=== PATIENT | female | born 1965 | race Caucasian/White ===

== ENCOUNTER 2023-05-03 23:24 | Inpatient (IN) | payer OTHER, MEDICAID ==
[~2023-05-03] VITALS: Ht 154.9 cm; Wt 87.7 kg
[2023-05-03] MEDS ORDERED: SODIUM CHLORIDE 0.9% 1,000 ML IVB ONE (23:45)
[2023-05-04 00:15] LABS: Basophils # (auto) 0 10 ^3/uL (0-0.2); Eosinophils # (auto) 0 10 ^3/uL (0-0.8); Lymphocytes # (auto) 1.2 10 ^3/uL (0.4-5.4)
[2023-05-04 00:18] LABS: Basophils % (auto) 0.8 % (0.0-2.0); Eosinophils % (auto) 0.6 % (0.0-7.0); Hematocrit 38.1 % (36.0-46.0); Hemoglobin 12.3 g/dL (12.2-16.2); Lymphocytes % (auto) 30.5 % (10.0-50.0); Mean Corpuscular Hemoglobin 25.6 pg (28.0-32.0); Mean Corpuscular Hgb Conc. 32.3 g/dL (32.0-36.0); Mean Corpuscular Volume 79.3 fL (80.0-100.0); Monocytes # (auto) 0.2 10 ^3/uL (0-1.3); Monocytes % (auto) 6.1 % (0.0-12.0); Neutrophils # (auto) 2.5 10 ^3/uL (1.6-8.6); Nucleated Red Blood Cells % 0.2 %; Red Blood Cells 4.81 10^6/uL (4.0-5.20)
[2023-05-04 00:23] LABS: Red Cell Distribution Width 21.5 % (11.8-14.3)
[2023-05-04 00:24] LABS: INR 1.12 (0.9-1.15); Partial Thromboplastin Time 26.5 SEC (24.5-34.5); Prothrombin Time 11.7 sec (9.3-11.8)
[2023-05-04 00:36] LABS: Albumin 4.4 g/dL (3.2-4.8); Alkaline Phosphatase 81 U/L (46-116); Anion Gap 12 (5-15); Aspartate Aminotransferase 16 U/L (13-40); BUN/Creatinine Ratio 12.8 (10.0-20.0); Blood Urea Nitrogen 11 mg/dL (9-23); Calcium 8.8 mg/dL (8.7-10.4); Carbon Dioxide 20 mmol/L (20-30); Chloride 109 mmol/L (98-107); Glucose 156 mg/dL (74-106); Lipase 30 U/L (12-53); Magnesium 2.2 mg/dL (1.6-2.6); Potassium 3.6 mmol/L (3.5-5.1); Sodium 141 mmol/L (136-145)
[2023-05-04 00:37] LABS: Bilirubin, Total 0.4 mg/dL (0.2-1.0); Total Protein 7.2 g/dL (5.7-8.2)
[2023-05-04 00:43] LABS: Alanine Aminotransferase 9 U/L (7-40)
[2023-05-04] MEDS ORDERED: LORazepam 2MG/ML-1ML VIAL IV ONE ×2 (00:45→04:15)
[2023-05-04 00:52] LABS: Lactic Acid w/Reflex 2.8 mmol/L (0.4-2.0)
[2023-05-04] MEDS ORDERED: IOHEXOL 350 MG/ML 100ML IJ ONE (04:29)
[2023-05-04] MEDS ORDERED: PANTOPRAZOLE 80 MG in SODIUM CHL 0.9% 100 ML IV ONE (05:30)
[2023-05-04] MEDS ORDERED: PANTOPRAZOLE 40mg/50ML NS AE 50 ML IV ONE (05:30)
[2023-05-04 05:39] VITALS: PULSE 102; RESP 20; O2SAT 98
[2023-05-04] MEDS ORDERED: PANTOPRAZOLE 40 MG/10 ML VIAL INJ IV ONE (05:53)
[2023-05-04 07:12] LABS: Amphetamine Screen, Urine Neg (NEGATIVE); Barbiturate Scree,Urine Neg (NEGATIVE); Benzodiazephine Screen, Urine Neg (NEGATIVE); Cannabinoid Screen, Urine Neg (NEGATIVE); Cocaine Screen, Urine Neg (NEGATIVE); Opiate Scree,Urine Pos (NEGATIVE); Phencyclidine Screen, Urine Neg (NEGATIVE)
[2023-05-04 07:54] LABS: Urine Bacteria NONE SEEN /hpf (None Seen); Urine Blood Negative /uL (Negative); Urine Clarity Clear (Clear); Urine Color Yellow (Yellow); Urine Mucus FEW (None Seen); Urine Protein, UAD TRACE (Negative); Urine WBC <1 /hpf (0 - 5)
[2023-05-04 08:22] LABS: Urine Specific Gravity > 1.050 (1.001-1.035)
[2023-05-04] MEDS ORDERED: NITROGLYCERIN 0.4 MG SL TAB SL PRN (11:00)
[2023-05-04] MEDS ORDERED: MORPHINE SULFATE INJ 2 MG/ml SYRG IV PRN (11:00)
[2023-05-04] MEDS ORDERED: cefTRIAXone 1GM/50ML D5W 50 ML IV ONE ×2 (11:00→11:30)
[2023-05-04] MEDS ORDERED: ACETAMINOPHEN 325 MG TAB PO PRN (11:00)
[2023-05-04 12:02] LABS: Triglycerides 70 mg/dL (< 150)
[2023-05-04 12:03] LABS: LDL Cholesterol 104 mg/dL (< 100)
[2023-05-04 12:04] LABS: Cholesterol 191 mg/dL (< 200)
[2023-05-04 12:08] LABS: Free T3 2.54 pg/mL (2.3-4.2); Free T4 (Free Thyroxine) 0.72 ng/dL (0.89-1.76)
[2023-05-04 12:37] LABS: HDL Cholesterol 70 mg/dL (40-59)
[2023-05-04] MEDS: SODIUM CHLORIDE 0.9% 1,000 ML IV SCH (21:00)
[2023-05-05] VITALS (8 sets, daily range): BP systolic 114–143; BP diastolic 65–91; PULSE 73–98; RESP 15–19; TEMP 97.3–98.2; O2SAT 93–100
[2023-05-05] MEDS: cefTRIAXone 1GM/50ML D5W 50 ML IV SCH ×2 (02:14→08:43)
[2023-05-05] MEDS: SODIUM CHLORIDE 0.9% 1,000 ML IV SCH ×3 (02:14→17:00)
[2023-05-05] MEDS ORDERED: DIVA250T4 PO (06:54)
[2023-05-05] MEDS ORDERED: HYDR2TAB58 PO (06:54)
[2023-05-05] MEDS ORDERED: BACL10TA PO (06:54)
[2023-05-05] MEDS ORDERED: ENOXAPARIN SOD 40 MG/0.4 ML SYRINGE SC SCH (10:00)
[2023-05-05] MEDS ORDERED: LEVOTHYROXINE SODIUM 112 MCG TAB PO ONE (10:15)
[2023-05-05] MEDS ORDERED: APIXABAN 5 MG TAB PO ONE (10:30)
[2023-05-05] MEDS: LORazepam 0.5 MG TAB PO PRN ×2 (10:40→18:03)
[2023-05-05 11:38] LABS: Basophils # (auto) 0 10 ^3/uL (0-0.2); Eosinophils # (auto) 0 10 ^3/uL (0-0.8); Hemoglobin 11.4 g/dL (12.2-16.2); Neutrophils # (auto) 1.8 10 ^3/uL (1.6-8.6); Nucleated Red Blood Cells % 0.1 %; White Blood Cell 3.1 10^3/uL (4.4-10.8)
[2023-05-05 11:40] LABS: Basophils % (auto) 0.8 % (0.0-2.0); Hematocrit 35.4 % (36.0-46.0); Lymphocytes % (auto) 33.2 % (10.0-50.0); Mean Corpuscular Hemoglobin 25.3 pg (28.0-32.0); Mean Corpuscular Hgb Conc. 32.3 g/dL (32.0-36.0); Mean Corpuscular Volume 78.4 fL (80.0-100.0); Monocytes # (auto) 0.2 10 ^3/uL (0-1.3); Monocytes % (auto) 7.5 % (0.0-12.0); Neutrophils % (auto) 57.5 % (37.0-80.0); Red Blood Cells 4.52 10^6/uL (4.0-5.20); Red Cell Distribution Width 21.3 % (11.8-14.3)
[2023-05-05 11:58] LABS: Albumin 3.9 g/dL (3.2-4.8); Alkaline Phosphatase 71 U/L (46-116); Anion Gap 8 (5-15); Aspartate Aminotransferase 15 U/L (13-40); BUN/Creatinine Ratio 14.7 (10.0-20.0); Bilirubin, Total 0.6 mg/dL (0.2-1.0); Blood Urea Nitrogen 10 mg/dL (9-23); Calcium 8.6 mg/dL (8.7-10.4); Carbon Dioxide 23 mmol/L (20-30); Chloride 108 mmol/L (98-107); Glucose 89 mg/dL (74-106); Potassium 3.9 mmol/L (3.5-5.1); Sodium 139 mmol/L (136-145); Total Protein 6.2 g/dL (5.7-8.2)
[2023-05-05 12:00] LABS: Alanine Aminotransferase < 9 U/L (7-40)
[2023-05-05] MEDS ORDERED: diphenhdrAMINE HCL 25 MG CAP PO PRN (21:30)
[2023-05-05] MEDS: QUEtiapine FUMARATE 100 MG TAB PO SCH (22:22)
[2023-05-05] MEDS: APIXABAN 5 MG TAB PO SCH (22:22)
[2023-05-05] MEDS ORDERED: MORPHINE SULFATE INJ 2 MG/ml SYRG IV ONE (23:45)
[2023-05-06] VITALS (7 sets, daily range): BP systolic 114–142; BP diastolic 74–85; PULSE 84–98; RESP 15–20; TEMP 97.5–98.5; O2SAT 91–100
[2023-05-06] MEDS: LORazepam 0.5 MG TAB PO PRN ×3 (02:24→18:56)
[2023-05-06] MEDS: SODIUM CHLORIDE 0.9% 1,000 ML IV SCH ×3 (03:00→23:00)
[2023-05-06] MEDS: HYDROmorphone HCL 2 MG/ML VL/or syr IV PRN ×3 (04:12→19:59)
[2023-05-06] MEDS: LEVOTHYROXINE SODIUM 112 MCG TAB PO SCH (06:30)
[2023-05-06] MEDS: APIXABAN 5 MG TAB PO SCH ×2 (09:55→21:21)
[2023-05-06] MEDS: cefTRIAXone 1GM/50ML D5W 50 ML IV SCH (09:56)
[2023-05-06] MEDS: QUEtiapine FUMARATE 100 MG TAB PO SCH (21:21)
[2023-05-07] MEDS: HYDROmorphone HCL 2 MG/ML VL/or syr IV PRN ×2 (00:34→06:39)
[2023-05-07 05:00] VITALS: BP 117/63; PULSE 89; RESP 20; TEMP 97.7; O2SAT 95
[2023-05-07] MEDS: LEVOTHYROXINE SODIUM 112 MCG TAB PO SCH (06:38)
[2023-05-07 08:00] VITALS: BP 119/72; PULSE 73; PULSE 89; RESP 14; TEMP 98.3; O2SAT 98
[2023-05-07] MEDS: APIXABAN 5 MG TAB PO SCH (09:47)
[2023-05-07] MEDS: cefTRIAXone 1GM/50ML D5W 50 ML IV SCH (09:47)
[2023-05-07] MEDS: LORazepam 0.5 MG TAB PO PRN (09:47)
[2023-05-07] MEDS: SODIUM CHLORIDE 0.9% 1,000 ML IV SCH (09:48)
[2023-05-07 09:50] VITALS: BP 119/72; PULSE 89; RESP 14
[2023-05-07] MEDS ORDERED: LORA-1121 PO (11:25)
[2023-05-07] MEDS ORDERED: CIPR-173 PO (11:25)
== END 2023-05-07 13:21 | disposition home or self-care (01) | DRG 309 ==
LOC: ER 23:24 → EDBD 23:24 → TELE 05-04 10:58 → TELE-WESTW 05-04 23:00
PROVIDERS: ADMIT Nurse Practitioner Family; ATTEND Family Medicine
DX: R00.2 Palpitations (principal); E87.21 Acute metabolic acidosis; I47.19 Other supraventricular tachycardia; N39.0 Urinary tract infection, site not specified; G89.29 Other chronic pain; M54.9 Dorsalgia, unspecified; F32.A Depression, unspecified; R79.89 Other specified abnormal findings of blood chemistry; E03.9 Hypothyroidism, unspecified; E66.9 Obesity, unspecified; F41.0 Panic disorder [episodic paroxysmal anxiety]; K25.9 Gastric ulcer, unspecified as acute or chronic, without hemorrhage or perforation; K44.9 Diaphragmatic hernia without obstruction or gangrene; Z79.891 Long term (current) use of opiate analgesic; Z79.899 Other long term (current) drug therapy; Z88.0 Allergy status to penicillin; Z68.36 Body mass index [BMI] 36.0-36.9, adult; Z79.01 Long term (current) use of anticoagulants; Z86.718 Personal history of other venous thrombosis and embolism
CPT/HCPCS: 36415; 71275; 80053; 80061; 80307; 81001; 83036; 83605; 83690; 83735; 83880; 84439; 84443; 84481; 84484; 85025; 85379; 85610; 85730; 87040; 87086; 93005; 93306; 93970; 96361; 96365; 96366; 96375; 96376; C9113; G0378; J0696

== ENCOUNTER 2023-12-27 05:12 | Inpatient (IN) | payer OTHER, MEDICAID ==
[~2023-12-27] VITALS: Ht 152.4 cm; Wt 75.9 kg
[~2023-12-27 05:12] MED LIST: BACL10TA PO; CIPR-173 PO; DIVA-139 PO; HYDR2TAB58 PO; LORA-1121 PO
[2023-12-27] MEDS: SODIUM CHLORIDE 0.9% 1,000 ML IVB ONE (06:30)
[2023-12-27] MEDS: MECLIZINE HCL 25 MG TAB PO ONE (07:00)
[2023-12-27] MEDS: MAALOX PLUS or MAALOX 30 ML PO ONE (07:00)
[2023-12-27] MEDS: LIDOCAINE VISCOUS 2% 15ML UD PO ONE (07:00)
[2023-12-27] MEDS: FAMOTIDINE 20 MG TAB PO ONE (07:00)
[2023-12-27 07:30] VITALS: PULSE 61; RESP 18; O2SAT 98
[2023-12-27 07:43] LABS: Urine Bacteria None Seen /hpf (None Seen)
[2023-12-27 07:58] LABS: Urine Amorphous Crystal FEW /hpf (None Seen); Urine Blood Negative /uL (Negative); Urine Clarity Turbid (Clear); Urine Color Yellow (Yellow); Urine Mucus FEW (None Seen); Urine Protein, UAD Negative (Negative); Urine Urobilinogen 12 mg/dL (Negative); Urine WBC 2 /hpf (0 - 5)
[2023-12-27 08:51] LABS: Basophils # (auto) 0 10 ^3/uL (0-0.2); Basophils % (auto) 0.3 % (0.0-2.0); Eosinophils # (auto) 0 10 ^3/uL (0-0.8); Eosinophils % (auto) 0.5 % (0.0-7.0); Hematocrit 40.6 % (36.0-46.0); Hemoglobin 13.2 g/dL (12.2-16.2); Mean Corpuscular Hemoglobin 27.5 pg (28.0-32.0); Mean Corpuscular Hgb Conc. 32.4 g/dL (32.0-36.0); Mean Corpuscular Volume 84.7 fL (80.0-100.0); Monocytes # (auto) 0.4 10 ^3/uL (0-1.3); Monocytes % (auto) 10.4 % (0.0-12.0); Neutrophils # (auto) 2.3 10 ^3/uL (1.6-8.6); Neutrophils % (auto) 61.8 % (37.0-80.0); Nucleated Red Blood Cells % 0.2 %; White Blood Cell 3.7 10^3/uL (4.4-10.8)
[2023-12-27] MEDS: IOHEXOL 350 MG/ML 100ML IJ ONE (09:02)
[2023-12-27 09:06] LABS: INR 1.17 (0.9-1.15); Partial Thromboplastin Time 28.4 SEC (24.5-34.5); Prothrombin Time 12.3 sec (9.3-11.8)
[2023-12-27 09:24] LABS: Alanine Aminotransferase 15 U/L (7-40); Albumin 3.5 g/dL (3.2-4.8); Alkaline Phosphatase 56 U/L (46-116); Anion Gap 6 (5-15); Aspartate Aminotransferase 20 U/L (13-40); BUN/Creatinine Ratio 18.1 (10.0-20.0); Bilirubin, Total 0.2 mg/dL (0.2-1.0); Blood Urea Nitrogen 13 mg/dL (9-23); Carbon Dioxide 26 mmol/L (20-30); Chloride 112 mmol/L (98-107); Glucose 88 mg/dL (74-106); Sodium 144 mmol/L (136-145); Total Protein 5.3 g/dL (5.7-8.2)
[2023-12-27] MEDS ORDERED: LORazepam 2MG/ML-1ML VIAL IV PRN (10:15)
[2023-12-27 10:19] LABS: Calcium 8.9 mg/dL (8.7-10.4)
[2023-12-27] MEDS: AZITHROMYCIN 500MG/ 250ML 250 ML IV ONE (10:42)
[2023-12-27 11:41] LABS: Amphetamine Screen, Urine Neg (NEGATIVE); Barbiturate Scree,Urine Neg (NEGATIVE); Benzodiazephine Screen, Urine Neg (NEGATIVE); Cocaine Screen, Urine Neg (NEGATIVE); Opiate Scree,Urine Pos (NEGATIVE); Phencyclidine Screen, Urine Neg (NEGATIVE)
[2023-12-27 11:42] LABS: Cannabinoid Screen, Urine Neg (NEGATIVE)
[2023-12-27 11:43] LABS: Triglycerides 98 mg/dL (< 150)
[2023-12-27 11:44] LABS: LDL Cholesterol 105 mg/dL (< 100)
[2023-12-27 11:45] LABS: HDL Cholesterol 63 mg/dL (40-59)
[2023-12-27 11:46] LABS: Cholesterol 191 mg/dL (< 200)
[2023-12-27] MEDS ORDERED: ACETAMINOPHEN 325 MG TAB PO PRN (12:15)
[2023-12-27] MEDS ORDERED: hydrALAZINE HCL 20 MG/ML VL IV PRN (12:15)
[2023-12-27] MEDS ORDERED: NITROGLYCERIN 0.4 MG SL TAB SL PRN (12:15)
[2023-12-27] MEDS: ONDANSETRON HCL 4 MG/2 ML VIAL IV ONE (13:14)
[2023-12-27] MEDS: MORPHINE SULFATE 4 MG/ML SYR/VIAL IV ONE (13:14)
[2023-12-27] MEDS: SODIUM CHLORIDE 0.9% 1,000 ML IV SCH (13:15)
[2023-12-27] MEDS: BACLOFEN 10 MG TAB PO SCH (14:37)
[2023-12-27 15:07] VITALS: BP 137/78; PULSE 72; RESP 18; TEMP 98.1; O2SAT 94
[2023-12-27 15:11] VITALS: PULSE 72; RESP 18
[2023-12-27] MEDS: HYDROcodone-ACET 5/325MG TAB PO PRN (16:32)
[2023-12-27] MEDS: MORPHINE SULFATE INJ 2 MG/ml SYRG IV PRN (19:13)
[2023-12-27 20:00] VITALS: PULSE 70; PULSE 80; RESP 16; O2SAT 96
[2023-12-27 21:00] VITALS: BP 128/77; PULSE 70; RESP 16; TEMP 98; O2SAT 96
[2023-12-28] VITALS (8 sets, daily range): BP systolic 135–150; BP diastolic 78–85; PULSE 60–86; RESP 15–16; TEMP 97.7–98.3; O2SAT 95–99
[2023-12-28 05:21] LABS: Basophils # (auto) 0 10 ^3/uL (0-0.2); Basophils % (auto) 0.3 % (0.0-2.0); Eosinophils # (auto) 0 10 ^3/uL (0-0.8); Hematocrit 39.2 % (36.0-46.0); Hemoglobin 12.7 g/dL (12.2-16.2); Lymphocytes # (auto) 1.3 10 ^3/uL (0.4-5.4); Lymphocytes % (auto) 30.1 % (10.0-50.0); Mean Corpuscular Hemoglobin 27.3 pg (28.0-32.0); Mean Corpuscular Hgb Conc. 32.4 g/dL (32.0-36.0); Mean Corpuscular Volume 84.3 fL (80.0-100.0); Monocytes # (auto) 0.3 10 ^3/uL (0-1.3); Neutrophils # (auto) 2.7 10 ^3/uL (1.6-8.6); Neutrophils % (auto) 61.6 % (37.0-80.0); Nucleated Red Blood Cells % 0.4 %; Red Blood Cells 4.65 10^6/uL (4.0-5.20); White Blood Cell 4.4 10^3/uL (4.4-10.8)
[2023-12-28 05:32] LABS: Chloride 111 mmol/L (98-107); Potassium 3.9 mmol/L (3.5-5.1); Sodium 141 mmol/L (136-145)
[2023-12-28 05:33] LABS: Anion Gap 7 (5-15); Calcium 8.1 mg/dL (8.5-10.1); Carbon Dioxide 23 mmol/L (20-30)
[2023-12-28 05:38] LABS: Alkaline Phosphatase 52 U/L (46-116); BUN/Creatinine Ratio 14.5 (10.0-20.0); Blood Urea Nitrogen 10 mg/dL (9-23); Glucose 82 mg/dL (74-106)
[2023-12-28 05:40] LABS: Albumin 3.4 g/dL (3.2-4.8); Aspartate Aminotransferase 17 U/L (13-40); Bilirubin, Total 0.4 mg/dL (0.2-1.0); Total Protein 5.3 g/dL (5.7-8.2)
[2023-12-28 05:54] LABS: Alanine Aminotransferase 11 U/L (7-40)
[2023-12-28] MEDS: LORazepam 0.5 MG TAB PO SCH (08:22)
[2023-12-28] MEDS: ATORVASTATIN 20 MG TAB PO SCH (09:38)
[2023-12-28] MEDS: ASPirin 81 mg TAB PO SCH (09:38)
[2023-12-28] MEDS: ENOXAPARIN SOD 40 MG/0.4 ML SYRINGE SC SCH (09:40)
[2023-12-28] MEDS: MORPHINE SULFATE INJ 2 MG/ml SYRG IV ONE (13:51)
[2023-12-28] MEDS ORDERED: BUPR150T18 PO (16:21)
[2023-12-28] MEDS ORDERED: TRAZ1TAB12 PO (16:21)
[2023-12-28] MEDS ORDERED: HYDR-4924 PO (16:21)
[2023-12-28] MEDS ORDERED: LEMB10TA PO (16:21)
[2023-12-28] MEDS ORDERED: TIZA1TAB20 PO (16:21)
[2023-12-28] MEDS ORDERED: DIVA1TAB39 PO (16:21)
[2023-12-28] MEDS ORDERED: LEVO112T4 PO (16:21)
[2023-12-28] MEDS ORDERED: APIX2.5T PO (16:21)
[2023-12-28] MEDS ORDERED: PAR20T PO (16:21)
[2023-12-28] MEDS ORDERED: BUSP10TA31 PO (16:21)
[2023-12-28] MEDS ORDERED: HYDR4TAB3 PO (16:21)
[2023-12-28] MEDS: ATORVASTATIN 20 MG TAB PO ONE (16:35)
[2023-12-28] MEDS: MORPHINE SULFATE INJ 2 MG/ml SYRG IV PRN (20:56)
[2023-12-29] VITALS (8 sets, daily range): BP systolic 129–143; BP diastolic 68–80; PULSE 53–87; RESP 16–20; TEMP 97.7–98.8; O2SAT 91–98
[2023-12-29] MEDS: traZODone HCL 50 MG TAB PO PRN (00:23)
[2023-12-29] MEDS: PARoxetine 20 MG TAB PO SCH (06:04)
[2023-12-29] MEDS: LEVOTHYROXINE SODIUM 112 MCG TAB PO SCH (06:04)
[2023-12-29 06:14] LABS: Basophils # (auto) 0 10 ^3/uL (0-0.2); Basophils % (auto) 0.5 % (0.0-2.0); Eosinophils # (auto) 0 10 ^3/uL (0-0.8); Eosinophils % (auto) 0.9 % (0.0-7.0); Hematocrit 42.1 % (36.0-46.0); Hemoglobin 14.1 g/dL (12.2-16.2); Lymphocytes # (auto) 1.4 10 ^3/uL (0.4-5.4); Lymphocytes % (auto) 36.6 % (10.0-50.0); Mean Corpuscular Hemoglobin 27.9 pg (28.0-32.0); Mean Corpuscular Hgb Conc. 33.5 g/dL (32.0-36.0); Mean Corpuscular Volume 83.3 fL (80.0-100.0); Monocytes # (auto) 0.2 10 ^3/uL (0-1.3); Monocytes % (auto) 5.8 % (0.0-12.0); Neutrophils # (auto) 2.1 10 ^3/uL (1.6-8.6); Neutrophils % (auto) 56.2 % (37.0-80.0); Nucleated Red Blood Cells % 0.2 %; Red Blood Cells 5.05 10^6/uL (4.0-5.20); Red Cell Distribution Width 16.8 % (11.8-14.3); White Blood Cell 3.8 10^3/uL (4.4-10.8)
[2023-12-29 06:31] LABS: Alanine Aminotransferase 13 U/L (7-40); Albumin 3.7 g/dL (3.2-4.8); Alkaline Phosphatase 60 U/L (46-116); Anion Gap 6 (5-15); Aspartate Aminotransferase 19 U/L (13-40); BUN/Creatinine Ratio 8.6 (10.0-20.0); Blood Urea Nitrogen 6 mg/dL (9-23); Calcium 9.1 mg/dL (8.7-10.4); Carbon Dioxide 23 mmol/L (20-30); Chloride 107 mmol/L (98-107); Glucose 85 mg/dL (74-106); Potassium 4.1 mmol/L (3.5-5.1); Sodium 136 mmol/L (136-145)
[2023-12-29 06:32] LABS: Bilirubin, Total 0.5 mg/dL (0.2-1.0); Total Protein 5.8 g/dL (5.7-8.2)
[2023-12-29] MEDS: hydrOXYzine 25 MG TAB or CAP PO PRN (14:59)
[2023-12-29] MEDS: ATORVASTATIN 20 MG TAB PO SCH (20:39)
[2023-12-29] MEDS: MORPHINE SULFATE INJ 2 MG/ml SYRG IV PRN (23:13)
[2023-12-30] VITALS (8 sets, daily range): BP systolic 128–139; BP diastolic 66–81; PULSE 58–78; RESP 17–20; TEMP 97.6–98.7; O2SAT 94–97
[2023-12-30 08:59] LABS: Basophils # (auto) 0 10 ^3/uL (0-0.2); Basophils % (auto) 0.5 % (0.0-2.0); Eosinophils # (auto) 0.1 10 ^3/uL (0-0.8); Eosinophils % (auto) 1.2 % (0.0-7.0); Hematocrit 46.2 % (36.0-46.0); Hemoglobin 15.4 g/dL (12.2-16.2); Lymphocytes # (auto) 1.8 10 ^3/uL (0.4-5.4); Mean Corpuscular Hemoglobin 27.8 pg (28.0-32.0); Mean Corpuscular Hgb Conc. 33.3 g/dL (32.0-36.0); Mean Corpuscular Volume 83.7 fL (80.0-100.0); Monocytes # (auto) 0.4 10 ^3/uL (0-1.3); Monocytes % (auto) 7.9 % (0.0-12.0); Neutrophils # (auto) 2.2 10 ^3/uL (1.6-8.6); Neutrophils % (auto) 49.4 % (37.0-80.0); Nucleated Red Blood Cells % 0.1 %; Red Blood Cells 5.52 10^6/uL (4.0-5.20); Red Cell Distribution Width 16.6 % (11.8-14.3); White Blood Cell 4.5 10^3/uL (4.4-10.8)
[2023-12-30 09:21] LABS: Alanine Aminotransferase 14 U/L (7-40); Albumin 4.1 g/dL (3.2-4.8); Alkaline Phosphatase 65 U/L (46-116); Anion Gap 11 (5-15); Aspartate Aminotransferase 26 U/L (13-40); BUN/Creatinine Ratio 13.7 (10.0-20.0); Bilirubin, Total 0.6 mg/dL (0.2-1.0); Blood Urea Nitrogen 10 mg/dL (9-23); Calcium 9.9 mg/dL (8.7-10.4); Carbon Dioxide 22 mmol/L (20-30); Chloride 104 mmol/L (98-107); Glucose 65 mg/dL (74-106); Potassium 4.1 mmol/L (3.5-5.1); Sodium 137 mmol/L (136-145); Total Protein 6.6 g/dL (5.7-8.2)
[2023-12-30 09:34] LABS: Magnesium 1.7 mg/dL (1.6-2.6)
[2023-12-30] MEDS ORDERED: HYDROmorphone HCL 2 MG TAB PO PRN (19:45)
[2023-12-30] MEDS: BACLOFEN 10 MG TAB PO PRN (21:26)
[2023-12-31] VITALS (8 sets, daily range): BP systolic 107–159; BP diastolic 69–86; PULSE 71–91; RESP 16–18; TEMP 97.1–99.2; O2SAT 93–97
[2023-12-31 10:26] LABS: Basophils # (auto) 0 10 ^3/uL (0-0.2); Basophils % (auto) 0.3 % (0.0-2.0); Eosinophils # (auto) 0 10 ^3/uL (0-0.8); Eosinophils % (auto) 0.8 % (0.0-7.0); Hematocrit 45.8 % (36.0-46.0); Hemoglobin 14.8 g/dL (12.2-16.2); Lymphocytes % (auto) 33.2 % (10.0-50.0); Mean Corpuscular Hemoglobin 27.5 pg (28.0-32.0); Mean Corpuscular Hgb Conc. 32.4 g/dL (32.0-36.0); Mean Corpuscular Volume 84.9 fL (80.0-100.0); Monocytes # (auto) 0.6 10 ^3/uL (0-1.3); Monocytes % (auto) 9.8 % (0.0-12.0); Neutrophils # (auto) 3.3 10 ^3/uL (1.6-8.6); Neutrophils % (auto) 55.9 % (37.0-80.0); Nucleated Red Blood Cells % 0.1 %; Red Blood Cells 5.39 10^6/uL (4.0-5.20); Red Cell Distribution Width 16.8 % (11.8-14.3)
[2023-12-31 10:50] LABS: Alanine Aminotransferase 15 U/L (7-40); Albumin 3.6 g/dL (3.2-4.8); Alkaline Phosphatase 61 U/L (46-116); Anion Gap 9 (5-15); Aspartate Aminotransferase 27 U/L (13-40); BUN/Creatinine Ratio 12.1 (10.0-20.0); Blood Urea Nitrogen 8 mg/dL (9-23); Calcium 9.5 mg/dL (8.7-10.4); Carbon Dioxide 20 mmol/L (20-30); Chloride 107 mmol/L (98-107); Glucose 94 mg/dL (74-106); Magnesium 1.9 mg/dL (1.6-2.6); Potassium 3.8 mmol/L (3.5-5.1); Sodium 136 mmol/L (136-145)
[2023-12-31 10:51] LABS: Bilirubin, Total 0.5 mg/dL (0.2-1.0); Total Protein 5.9 g/dL (5.7-8.2)
[2023-12-31] MEDS ORDERED: ATOR40TA52 PO (15:39)
[2023-12-31] MEDS ORDERED: ASPI-543 PO (15:39)
[2024-01-01] VITALS (8 sets, daily range): BP systolic 117–148; BP diastolic 79–91; PULSE 60–98; RESP 16–18; TEMP 97.7–98.8; O2SAT 92–98
[2024-01-01 06:59] LABS: Chloride 108 mmol/L (98-107); Potassium 4.2 mmol/L (3.5-5.1); Sodium 137 mmol/L (136-145)
[2024-01-01 07:00] LABS: Anion Gap 8 (5-15); Carbon Dioxide 21 mmol/L (20-30)
[2024-01-01 07:01] LABS: Calcium 9.6 mg/dL (8.7-10.4)
[2024-01-01 07:06] LABS: BUN/Creatinine Ratio 14.3 (10.0-20.0); Blood Urea Nitrogen 11 mg/dL (9-23); Glucose 89 mg/dL (74-106)
[2024-01-01] MEDS: DOCUSATE SOD 100 MG CAP PO PRN (09:12)
[2024-01-01 10:04] LABS: Basophils # (auto) 0 10 ^3/uL (0-0.2); Basophils % (auto) 0.2 % (0.0-2.0); Eosinophils # (auto) 0.1 10 ^3/uL (0-0.8); Eosinophils % (auto) 0.9 % (0.0-7.0); Hematocrit 46.2 % (36.0-46.0); Hemoglobin 15.5 g/dL (12.2-16.2); Lymphocytes # (auto) 1.9 10 ^3/uL (0.4-5.4); Lymphocytes % (auto) 33.7 % (10.0-50.0); Mean Corpuscular Hemoglobin 28.1 pg (28.0-32.0); Mean Corpuscular Hgb Conc. 33.5 g/dL (32.0-36.0); Mean Corpuscular Volume 83.8 fL (80.0-100.0); Monocytes # (auto) 0.6 10 ^3/uL (0-1.3); Monocytes % (auto) 11.1 % (0.0-12.0); Neutrophils % (auto) 54.1 % (37.0-80.0); Nucleated Red Blood Cells % 0.4 %; Red Blood Cells 5.51 10^6/uL (4.0-5.20); Red Cell Distribution Width 16.6 % (11.8-14.3); White Blood Cell 5.5 10^3/uL (4.4-10.8)
[2024-01-01 22:01] LABS: Urine Bacteria None Seen /hpf (None Seen)
[2024-01-01 22:21] LABS: Urine Blood 3+ /uL (Negative); Urine Clarity Ex.Turbid (Clear); Urine Color Brown (Yellow); Urine Mucus FEW (None Seen); Urine Protein, UAD 2+ (Negative); Urine Specific Gravity 1.034 (1.001-1.035); Urine Urobilinogen 6 mg/dL (Negative); Urine WBC 154 /hpf (0 - 5); Urine WBC Clumps PRESENT /hpf (None Seen); Urine pH 6.5 (5.0-9.0)
[2024-01-02 05:00] VITALS: BP 125/71; PULSE 66; RESP 16; TEMP 98.6; O2SAT 94
[2024-01-02 06:51] LABS: Anion Gap 8 (5-15); Carbon Dioxide 20 mmol/L (20-30); Chloride 109 mmol/L (98-107); Potassium 3.7 mmol/L (3.5-5.1); Sodium 137 mmol/L (136-145)
[2024-01-02 06:57] LABS: BUN/Creatinine Ratio 14.9 (10.0-20.0); Basophils # (auto) 0 10 ^3/uL (0-0.2); Basophils % (auto) 0.4 % (0.0-2.0); Blood Urea Nitrogen 11 mg/dL (9-23); Eosinophils # (auto) 0.1 10 ^3/uL (0-0.8); Eosinophils % (auto) 2.3 % (0.0-7.0); Glucose 80 mg/dL (74-106); Hematocrit 43.1 % (36.0-46.0); Hemoglobin 14.4 g/dL (12.2-16.2); Lymphocytes # (auto) 2.5 10 ^3/uL (0.4-5.4); Lymphocytes % (auto) 44.8 % (10.0-50.0); Mean Corpuscular Hemoglobin 28.3 pg (28.0-32.0); Mean Corpuscular Hgb Conc. 33.4 g/dL (32.0-36.0); Mean Corpuscular Volume 84.8 fL (80.0-100.0); Monocytes # (auto) 0.6 10 ^3/uL (0-1.3); Neutrophils # (auto) 2.4 10 ^3/uL (1.6-8.6); Neutrophils % (auto) 42.5 % (37.0-80.0); Nucleated Red Blood Cells % 0.1 %; Red Blood Cells 5.09 10^6/uL (4.0-5.20); Red Cell Distribution Width 16.9 % (11.8-14.3); White Blood Cell 5.6 10^3/uL (4.4-10.8)
[2024-01-02 08:00] VITALS: PULSE 74
[2024-01-02] MEDS: NITROFURANTOIN 100 mg CAP PO ONE (08:10)
[2024-01-02 12:19] VITALS: BP 147/95; PULSE 81; RESP 16; TEMP 98.3; O2SAT 93
[2024-01-02 13:00] VITALS: BP 128/69; PULSE 72; RESP 16
[2024-01-02] MEDS ORDERED: NITROFURANTOIN 100 mg CAP PO ONE (15:00)
[2024-01-02] MEDS ORDERED: NITR-52 PO (17:20)
[2024-01-02] MEDS ORDERED: NITROFURANTOIN 100 mg CAP PO SCH ×2 (22:00)
== END 2024-01-02 16:40 | disposition home health service (06) | DRG 643 ==
LOC: EDBD 05:12 → ER 05:12 → TELE 12:10 → TELE-CENTR 14:49
PROVIDERS: ADMIT Internal Medicine Pulmonary Disease; ATTEND Emergency Medicine
DX: E16.0 Drug-induced hypoglycemia without coma (principal); G93.41 Metabolic encephalopathy; T50.995A Adverse effect of other drugs, medicaments and biological substances, initial encounter; E66.01 Morbid (severe) obesity due to excess calories; G89.4 Chronic pain syndrome; F32.A Depression, unspecified; Z96.651 Presence of right artificial knee joint; F41.1 Generalized anxiety disorder; I10 Essential (primary) hypertension; E78.5 Hyperlipidemia, unspecified; Z88.0 Allergy status to penicillin; Z79.891 Long term (current) use of opiate analgesic; Z68.32 Body mass index [BMI] 32.0-32.9, adult; Z98.84 Bariatric surgery status; Z79.82 Long term (current) use of aspirin; Z79.899 Other long term (current) drug therapy; Y92.89 Other specified places as the place of occurrence of the external cause; Z87.11 Personal history of peptic ulcer disease
CPT/HCPCS: 36415; 70450; 70496; 70551; 71045; 80048; 80053; 80061; 80307; 81001; 82962; 83735; 83880; 84443; 84484; 85025; 85610; 85730; 87086; 93005; 93306; 93886; 95819; 96365; 96375; 97110; 97116; 97163; 97530; G0378; J2405